=== PATIENT | male | born 1940 | race Caucasian/White ===

== ENCOUNTER 2018-10-17 12:02 | Inpatient (IN) ==
[2018-10-17] MEDS ORDERED: ASPIRIN PO ONE (12:12)
--- NOTE | 2018-10-17 12:20 | EKG Report ---
Test Performed on : 10/17/2018 12:07:55 PM Test Reason : chest pain Blood Pressure : / mmHG Vent. Rate : 051 BPM Atrial Rate : 051 BPM P-R Int : 172 ms QRS Dur : 126 ms QT Int : 518 ms P-R-T Axes : 063 011 033 degrees QTc Int : 477 ms Sinus bradycardia. Right bundle branch block Abnormal ECG When compared with ECG of 05-OCT-2018 16:35, No significant change was found Unconfirmed Result
--- NOTE | 2018-10-17 12:50 | Diag Imaging Result Doc PS360 ---
EXAM: CHEST-2 VIEWS 10/17/2018 HISTORY: chest pain TECHNIQUE: PA and lateral chest COMMENT: There is blunting of the left costophrenic angle which has not changed since 03/29/2017 and 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 Overall the appearance the chest has not changed significantly otherwise. IMPRESSION: Stable chest. Electronically signed by Akin Zarate 10/17/2018 12:48 PM
[2018-10-17 12:53] LABS: BASO# 0.02 X1000 (0.0-0.2); BASO% 0.5 % (0.0-0.8); EOS# 0.17 X1000 (0.0-0.7); HEMATOCRIT 36.5 % (42.0-52.0); HEMOGLOBIN 12.7 g/dL (14.0-18.0); IMM GRAN# 0.02 X1000 (0.0-0.04); IMM GRAN% 0.5 % (0.0-0.5); LYMPH# 1.46 X1000 (1.2-3.4); LYMPH% 34.5 % (20.5-51.1); MCH 35.4 PG (27-31); MCHC 34.8 g/dL (33-37); MCV 101.7 FL (81-99); MONO# 0.43 X1000 (0.11-0.59); MONO% 10.2 % (1.7-9.3); NEUT# 2.13 X1000 (1.4-6.5); NEUT% 50.3 % (42.2-75.2); PLT 174 X1000 (130-400); RBC 3.59 XMIL (4.7-6.1); RDW 13.3 % (11.5-14.5); WBC 4.23 X1000 (4.8-10.8)
[2018-10-17 12:57] LABS: INR 1.13; PROTIME 14.7 Seconds (11.0-16.0)
[2018-10-17 12:58] LABS: PTT 27.4 Seconds (22.3-41.8)
[2018-10-17 13:20] LABS: ALB/GLOB RATIO 1.8; ALBUMIN 4.1 g/dL (3.5-5.0); CALCIUM 9.8 mg/dL (8.8-10.2); CREATININE 1.8 mg/dL (0.7-1.2); POTASSIUM 4.7 mmol/L (3.5-5.1); TOTAL BILIRUBIN 0.51 mg/dL (0.20-1.00); TOTAL PROTEIN 6.4 g/dL (6.3-8.3)
[2018-10-17] MEDS ORDERED: TORADOL IV ONE (14:14)
--- NOTE | 2018-10-17 14:48 | PROVIDER DOCUMENTATION ---
This chart was entered by Daly Jacobs Scribe, acting as scribe for King Rios MD. HPI-Chest Pain - General Chief Complaint: Chest Pain Stated Complaint: CP Time Seen by Provider: 10/17/18 12:56 Source: patient Allergies/Adverse Reactions: Patient Allergies Allergy/AdvReac Type Severity Reaction Status Date / Time Penicillins Allergy ANAPHYLAXIS Verified 05/24/17 14:46 Home Medications: Home Medication List Medication Instructions Recorded Confirmed Last Taken Type Metformin E.r. [Glucophage Xr] 500 mg PO BID CC 04/01/17 10/05/18 10/08/18 11:11 History Lisinopril 20 mg PO DAILY 05/24/17 10/05/18 10/08/18 11:11 History Atenolol 50 mg PO DAILY 10/05/18 10/05/18 10/08/18 11:11 History - History of Present Illness-CP Nature of Presenting Problem: Patient is a 78 year old male who presents with left side chest pain. States nausea, weakness, and shortness of breath with chest pain. Reports symptoms have been present for 3 days. States being seen at PCP prior to arrival. Location: reports: other (left side) Chest Pain Radiation: reports: no radiation Quality of Pain: reports: aching Severity in ED: mild Onset/Duration: 3 days ago Timing: still present Context/Activities at Onset: reports: light activity Modifying Factors: worse with: coughing, other (sneezing) Associated Symptoms: reports: nausea, shortness of breath, weakness Similar Symptoms Previously?: Yes Recently Seen Here or By Another Healthcare Provider: Yes Review of Systems - Adult - REVIEW OF SYSTEMS - ADULT Constitutional: reports: no symptoms reported. denies: chills, fever, fatique Eyes: reports: no symptoms reported Ears, Nose, Mouth & Throat: reports: no symptoms reported Cardiovascular: reports: see HPI, chest pain. denies: irregular heart rate, palpitations Respiratory: reports: see HPI, shortness of breath. denies: cough, wheezing Gastrointestinal: reports: see HPI, nausea. denies: abdominal pain, diarrhea, vomiting Genitourinary: reports: no symptoms reported Musculoskeletal: reports: see HPI, muscle weakness. denies: back pain, muscle aches, neck pain Integumentary: reports: no symptoms reported Neurological: reports: no symptoms reported Psychiatric: reports: no symptoms reported Endocrine: reports: no symptoms reported Hematologic/Lymphatic: reports: no symptoms reported Allergic/Immunologic: reports: no symptoms reported All Other Systems: Reviewed and Negative Past History - Adult - PAST MEDICAL HISTORY-ADULT Review of Records: reports: Old Records Reviewed, Nursing Assessment Review, Medications Reviewed, Social history reviewed & non-contributory. Major Childhood Illnesses: reports: denies history Cardiovascular: reports: HTN, hyperlipidemia Respiratory: reports: denies history Gastrointestinal: reports: GERD Obstetrical/Gynecological: reports: denies history Genitourinary: reports: prostate cancer Musculoskeletal: reports: denies history Neurological: reports: denies history Psychiatric: reports: depression Endocrine/Immune: reports: Diabetes Other Conditions: reports: denies history - PRIOR SURGERIES/PROCEDURES Surgical/Procedure History: reports: orthopedic (extremity), other (prostate, arthroscopy, retinal detatchment repair) - IMMUNIZATION STATUS Childhood Immunizations: See Nurse Assessment Flu Vaccine: See Nurse Assessment - FAMILY HISTORY Family History: reviewed, not pertinent - SOCIAL HISTORY Smoking: cigarettes (former) Substance Use: denies Physical Exam-General - PHYSICAL EXAM-ADULT Initial Vital Signs Reviewed: Yes - CONSTITUTIONAL General Appearance: alert, no apparent distress. negative: lethargic - HEAD, EARS, NOSE, MOUTH & THROAT HENMT: normocephalic/atraumatic, moist mucous membranes. negative: angioedema - RESPIRATORY Respiratory: lungs clear, normal breath sounds, other (left anterior chest wall tenderness with palpation). negative: crackles, rhonchi - CARDIOVASCULAR Cardiovascular: normal peripheral pulses, bradycardia. negative: systolic murmur - GASTROINTESTINAL (ABDOMEN) Abdominal Exam: normal bowel sounds, non tender, soft. negative: guarding - MUSCULOSKELETAL Extremity: non-tender, normal inspection. negative: deformity, erythema - SKIN Integumentary: normal color, normal turgor, warm/dry. negative: diaphoresis, rash - NEUROLOGIC Neurologic: grossly normal. negative: aphasia, facial droop - PSYCHIATRIC Psych/Mental Status: normal mood/affect, oriented x 3. negative: anxious - HEART Score HEART Score: History: Moderately Suspicious HEART Score: ECG: Non-Specific Repolarization Disturbance/LBBB/PM HEART Score: Age: > or = 65 Years HEART Score: Risk Factors for Atherosclerotic Disease: 1 or 2 Risk Factors HEART Score: Troponin: < or = Normal Limit Total HEART Score:: 5 Progress - PLAN OF CARE/RESULTS Progress/Plan/Lab Results: Vital Signs - 8 hr 10/17/18 12:08 10/17/18 12:16 10/17/18 13:00 Temperature 97.8 F Pulse Rate 53 L 60 60 Respiratory Rate 18 15 13 Blood Pressure 98/60 108/57 102/86 O2 Sat by Pulse Oximetry 99 100 100 10/17/18 13:10 10/17/18 13:20 10/17/18 13:30 Temperature Pulse Rate 46 L 54 L 51 L Respiratory Rate 13 13 19 Blood Pressure O2 Sat by Pulse Oximetry 97 96 97 10/17/18 13:40 10/17/18 13:50 10/17/18 13:51 Temperature Pulse Rate 89 56 L 55 L Respiratory Rate 20 12 12 Blood Pressure 105/58 O2 Sat by Pulse Oximetry 100 95 98 10/17/18 14:00 10/17/18 14:02 10/17/18 14:10 Temperature Pulse Rate 51 L 55 L 56 L Respiratory Rate 18 12 12 Blood Pressure 106/54 O2 Sat by Pulse Oximetry 98 100 98 10/17/18 14:20 Temperature Pulse Rate 55 L Respiratory Rate 17 Blood Pressure O2 Sat by Pulse Oximetry 98 Laboratory Results - last 24 hr 10/17/18 10/17/18 10/17/18 12:32 12:32 12:32 WBC 4.23 L RBC 3.59 L Hgb 12.7 L Hct 36.5 L MCV 101.7 H MCH 35.4 H MCHC 34.8 RDW Std Deviation 13.3 Plt Count 174 MPV 10.0 Immature Gran % (Auto) 0.5 Neut % (Auto) 50.3 Lymph % (Auto) 34.5 Beadle % (Auto) 10.2 H Eos % (Auto) 4.0 Baso % (Auto) 0.5 Immature Gran # (Auto) 0.02 Neut # (Auto) 2.13 Lymph # (Auto) 1.46 Beadle # (Auto) 0.43 Eos # (Auto) 0.17 Baso # (Auto) 0.02 PT INR PTT (Actin FS) Sodium 140 Potassium 4.7 Chloride 105 Carbon Dioxide 19 L Anion Gap 16 BUN 23 H Creatinine 1.8 H Estimated GFR/1.73 m2 37 BUN/Creatinine Ratio 13 Glucose 99 Calculated Osmolality 283 Calcium 9.8 Total Bilirubin 0.51 AST 38 H ALT 22 Alkaline Phosphatase 85 Creatine Kinase 48 Troponin T Qfb-[id number]-[id number] Pept 913 H Total Protein 6.4 Albumin 4.1 Globulin 2.3 Albumin/Globulin Ratio 1.8 10/17/18 10/17/18 10/17/18 12:32 12:32 14:56 WBC RBC Hgb Hct MCV MCH MCHC RDW Std Deviation Plt Count MPV Immature Gran % (Auto) Neut % (Auto) Lymph % (Auto) Beadle % (Auto) Eos % (Auto) Baso % (Auto) Immature Gran # (Auto) Neut # (Auto) Lymph # (Auto) Beadle # (Auto) Eos # (Auto) Baso # (Auto) PT 14.7 INR 1.13 PTT (Actin FS) 27.4 Sodium Potassium Chloride Carbon Dioxide Anion Gap BUN Creatinine Estimated GFR/1.73 m2 BUN/Creatinine Ratio Glucose Calculated Osmolality Calcium Total Bilirubin AST ALT Alkaline Phosphatase Creatine Kinase Troponin T < 0.010 < 0.010 Evc-T-Nbwvknzuezh Pept Total Protein Albumin Globulin Albumin/Globulin Ratio Orders Category Date Time Status Cardiac Monitoring DIRECTED Care 10/17/18 12:13 Active Saline Loc NOW Care 10/17/18 12:13 Active CHEST-2 VIEWS [RAD] Stat Exams 10/17/18 12:13 Completed CBC WITH ELECTRONIC DIFF [HEME] Stat Lab 10/17/18 12:32 Completed CK PROFILE [SP CHEM] Stat Lab 10/17/18 12:32 Completed COMPREHENSIVE METABOLIC PANEL [CHEM] Stat Lab 10/17/18 12:32 Completed PRO B-NATRIURETIC PEPTIDE Stat Lab 10/17/18 12:32 Completed PROTIME WITH INR [COAG] Stat Lab 10/17/18 12:32 Completed PTT [COAG] Stat Lab 10/17/18 12:32 Completed TROPONIN T Stat Lab 10/17/18 12:32 Completed TROPONIN T Stat Lab 10/17/18 14:56 Completed Aspirin Med 10/17/18 12:12 Discontinued 325 mg PO NOW ONE Ketorolac [Toradol] Med 10/17/18 14:14 Discontinued 15 mg IV NOW ONE CP/SOB/Palp >45 yrs of Age Stat Oth 10/17/18 12:12 Ordered EKG [EKG] Stat Ther 10/17/18 12:13 Draft EKG [EKG] Stat Ther 10/17/18 14:47 Draft Result Diagrams: 10/17/18 12:32 10/17/18 12:32 - EKG 1 Time of EKG reading by physician:: 12:07 EKG Read and Signed by:: King Rios EKG Interpretation (*Must complete 3 of following elements*): Abnormal Rate: 51 Rhythm: sinus bradycardia Skipwith: normal QRS: RBB SD Interval: normal Comments: abnormal ECG 2 Time of EKG reading by physician:: 14:49 EKG Read and Signed by:: King Rios EKG Interpretation (*Must complete 3 of following elements*): Abnormal Rate: 55 Rhythm: sinus bradycardia Skipwith: normal QRS: RBB SD Interval: normal Comments: abnormal ECG - XRAY 1 XRAY Study: Chest Impression: See EMR Report ( EXAM: CHEST-2 VIEWS 10/17/2018 HISTORY: chest pain TECHNIQUE: PA and lateral chest COMMENT: There is blunting of the left costophrenic angle which has not changed since 03/29/2017 and 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 Overall the appearance the chest has not changed significantly otherwise. IMPRESSION: Stable chest. Electronically signed by Akin Zarate 10/17/2018 12:48 PM 10/17/18 1248 Interpreting Physician: Akin Zarate MD Dictated Date/Time: 10/17/18 1247 cc: King Rios MD; Maurilio Aguilera MD) - CONSULTS/PCP/HOSPITALIST Notification #1 *Consult/PCP/Hospitalist*: AZIZA Roman for Hospitalist Time Discussed: 16:58 Reason/Comments: Dr. Rios consulted with Jessie about patient Consult Disposition: Will see in ED, Admit Departure - Departure Date of Disposition Decision: 10/17/18 Time of Disposition Decision: 16:58 DIAGNOSIS: Chest pain, Bradycardia Disposition: ADMITTED INPATIENT 09 Certified Medical Emergency: Emergent Condition: Fair Referrals and Follow-Ups: Maurilio Aguilera MD [Primary Care Provider] - - Critical Care Note This patient required my direct & personal management of CC.: No Attestation - Physician/ DEIDRE Attestation Patient care was provided by Advanced Practice Provider:: No The physician spent face to face time with patient:: Yes Advanced Practice Provider documentation review:: Supervising physician onsite and consulted in the evaluation and care of this patient. The physician did have a face to face encounter with the patient. This chart was documented by the indicated scribe, (Daly Jacobs Scribe) and accurately reflects the services I performed and decisions made by me, King Rios MD, as attested by the provider's signature.
--- NOTE | 2018-10-17 14:59 | EKG Report ---
Test Performed on : 10/17/2018 2:49:35 PM Test Reason : 2 HR REPEAT Blood Pressure : / mmHG Vent. Rate : 055 BPM Atrial Rate : 055 BPM P-R Int : 166 ms QRS Dur : 128 ms QT Int : 516 ms P-R-T Axes : 021 004 039 degrees QTc Int : 493 ms Sinus bradycardia. Right bundle branch block Abnormal ECG When compared with ECG of 17-OCT-2018 12:07, (Unconfirmed) No significant change was found Unconfirmed Result
[2018-10-17] MEDS ORDERED: ZOFRAN IV PRN (18:00)
[2018-10-17] MEDS ORDERED: TYLENOL PO PRN (18:00)
--- NOTE | 2018-10-17 19:05 | HISTORY AND PHYSICAL ---
PRIMARY CARE PHYSICIAN: Dr. Maurilio Aguilera. CHIEF COMPLAINT: Three days of intermittent chest pain. HISTORY OF PRESENT ILLNESS: Mr. Kat is a 78-year-old male with a history of hypertension, diabetes mellitus type 2 and a recent staph infection involving the right elbow who presented to the ER today with a chief complaint of intermittent chest pain for the last 3 days. The patient reports that he has been getting this intermittent stabbing in the center of his chest that comes and goes for the last 3 days. He reports that he felt strange and reports that he does have some mild shortness of breath with the chest discomfort but denies any syncope, nausea, vomiting, or diaphoresis. The patient states that he had a MSSA infection involving his right elbow about a month ago and he has completed the antibiotic therapy for this infection. The patient reports that he has been feeling depressed. His about 1 year ago this week. The patient reports that he has no difficulty with ambulation and [facility] The patient does report that he does drink alcoholic beverage once in a blue cerda. In the ER the patient was noted to be bradycardic with a heart rate ranging from 51 to about 56. His blood pressure was noted to be 116/68. The patient received 325 mg of aspirin upon arrival and a dose of Toradol. At this time the patient states that his chest pain is a 0/10. PAST MEDICAL HISTORY: 1. Hypertension. 2. Diabetes mellitus type 2. 3. Recent MSSA right elbow infection. 4. Chronic kidney disease stage 3. PAST SURGICAL HISTORY: 1. Prostatectomy. 2. Right shoulder arthroscopic surgery. FAMILY HISTORY: Positive for stroke. ALLERGIES: Penicillin which causes hives. SOCIAL HISTORY: The patient states that he drinks alcohol occasionally. Denies any tobacco usage. He currently lives at his son's [facility]. REVIEW OF SYSTEMS: A 12-point review of systems has been performed. Please refer to the history of present illness for pertinent positives and negatives. PHYSICAL EXAMINATION: VITAL SIGNS: Temperature 97.8 degrees, blood pressure 116/60, heart rate 71, respirations 14, O2 saturation is 100% on room air. GENERAL: This is a chronically ill-appearing elderly male lying comfortably on the stretcher in no acute distress. HEENT: Head normocephalic, atraumatic. Conjunctiva clear, EOMI, PERRLA. NECK: Supple. No JVD. No lymphadenopathy. HEART: S1, S2 normal bradycardic. LUNGS: Equal air entry bilaterally. No wheezing, no rales. No rhonchi. ABDOMEN: Positive bowel sounds. Soft, nontender, nondistended. EXTREMITIES: No edema, no cyanosis, no calf tenderness. There is some erythema on the right elbow. NEURO: The patient is alert and oriented x4. No focal neurologic deficits noted. Cranial nerves 2 through 12 intact. LABS: White blood cell count 4.2, hemoglobin 12, hematocrit 36, platelets 174,000. D-dimer 1. Sodium 140, potassium 4.7, chloride 105, CO2 19, BUN 23, creatinine 1.8, glucose 99, AST 38, ALT 22, alkaline phosphatase 85. Troponin less than 0.01. ProBNP 918, albumin 4.1. Chest x-ray reveals a stable chest. EKG reveals sinus bradycardia at 55 beats per minute. ASSESSMENT AND PLAN: 1. Chest pain. Will admit the patient to the medical floor on telemetry and rule out ND with serial enzymes and EKGs. Will also schedule the patient for a nuclear stress test tomorrow. We will continue on aspirin. We will hold the beta angie given the patient's bradycardia. Also the D-dimer was elevated. We will check a V/Q scan since the patient's creatinine is too high to perform CTA of the chest. We will also check a lipid profile. 2. Diabetes mellitus type 2. We will order Accu-Cheks before meals and at bedtime. We will also start the patient on insulin sliding scale. 3. Hypertension. Controlled. 4. Chronic kidney disease stage 3. Stable. 5. Deep vein thrombosis prophylaxis. Will start the patient on heparin. cc: Krista Barraza MD
[2018-10-17] MEDS ORDERED: MORPHINE IV PRN (21:32)
[2018-10-17] MEDS ORDERED: NS 500 ML IV SCH (21:45)
[2018-10-17] MEDS: HEPARIN SUBQ SCH (21:52)
[2018-10-17] MEDS: HUMULIN R SUBQ SCH (23:56)
[2018-10-18] MEDS: HUMULIN R SUBQ SCH ×2 (06:08→10:33)
[2018-10-18 06:54] VITALS: BP 132/67
[2018-10-18 07:49] LABS: HEMATOCRIT 38.4 % (42.0-52.0); HEMOGLOBIN 13.2 g/dL (14.0-18.0); MCH 35.4 PG (27-31); MCHC 34.4 g/dL (33-37); MCV 102.9 FL (81-99); RBC 3.73 XMIL (4.7-6.1); RDW 13.4 % (11.5-14.5); WBC 4.98 X1000 (4.8-10.8)
[2018-10-18 08:11] LABS: POTASSIUM 4.6 mmol/L (3.5-5.1); SODIUM 142 mmol/L (136-145)
[2018-10-18 08:12] LABS: AGAP 13; BUN 24 mg/dL (8-22); CALCIUM 8.9 mg/dL (8.8-10.2); CHLORIDE 108 mmol/L (98-107); CHOLESTEROL 140 mg/dL (0-200); COSMO 286; CREATININE 1.6 mg/dL (0.7-1.2); ESTIMATED GFR 42; GLUCOSE 86 mg/dL (70-104); HDL 82 mg/dL (35-55); LDL 39 mg/dL; TCO2 21 mmol/L (25-35); TRIGLYCERIDES 95 mg/dL (39-160); VLDL 19 mg/dL
--- NOTE | 2018-10-18 08:26 | Diag Imaging Result Doc PS360 ---
EXAM: LUNG SCAN / VQ 10/17/2018 HISTORY: pleuritic chest pain/elevated D dimer TECHNIQUE: Ventilation/perfusion lung scan, 39.7 mCi of technetium 99m DTPA aerosol for the ventilation portion and 5.9 mCi of technetium 99m MAA intravenously for the perfusion portion of the study. COMMENT: There is no evidence of ventilation/perfusion mismatch. There are no apparent perfusion defects. IMPRESSION: Normal study. Electronically signed by Akin Zarate 10/18/2018 8:24 AM
--- NOTE | 2018-10-18 08:50 | EKG Report ---
Test Performed on : 10/18/2018 08:32:49 AM Test Reason : chest pain Blood Pressure : / mmHG Vent. Rate : 043 BPM Atrial Rate : 043 BPM P-R Int : 156 ms QRS Dur : 124 ms QT Int : 538 ms P-R-T Axes : 001 001 033 degrees QTc Int : 454 ms Marked sinus bradycardia. Right bundle branch block Abnormal ECG When compared with ECG of 17-OCT-2018 14:49, (Unconfirmed) No significant change was found Confirmed by Jourdan Richard MD ([id number]) on 10/22/2018 9:30:01 PM
[2018-10-18] MEDS ORDERED: ASPIRIN EC PO SCH (09:00)
[2018-10-18] MEDS: HEPARIN SUBQ SCH (10:29)
--- NOTE | 2018-10-18 13:42 | CARDIOLOGY CONSULTATION ---
DATE: 10/18/2018 CHIEF COMPLAINT ON PRESENTATION: Four to five days of chest pain. HISTORY OF PRESENT ILLNESS: Mr. Kat is a 78-year-old, white male with a history of diabetes and hypertension who presented for evaluation of chest discomfort that occurred on walking out of an orthopedic clinic. He has been receiving antibiotics and care for a right elbow methicillin- sensitive staphylococcus infection. He described the discomfort as a stabbing- like discomfort in a relatively point location in his mid chest. There was no real exertional component. At times, there was a component associated with a deep breath or a cough. Again, it was stabbing. He says it has largely been present for the last 4 to 5 days in a fairly constant nature. PAST MEDICAL HISTORY: Significant for: 1. Hypertension. 2. Type 2 diabetes. 3. Recent treatment with multiple rounds of antibiotics for a methicillin- sensitive staphylococcus infection of his right elbow. 4. Chronic kidney disease. SOCIAL HISTORY: Occasional alcohol. No tobacco. He currently lives with his son. FAMILY HISTORY: Significant for hypertension. REVIEW OF SYSTEMS: A 10 system review of systems is negative except for those things mentioned in the HPI. PHYSICAL EXAMINATION: Vital Signs: He is afebrile. His heart rates have been anywhere from the mid 40s to 50s, blood pressure 132/67. General: He is in no acute distress. HEENT: Oropharynx is moist. Normal dentition. Eye examination shows pink conjunctivae and white sclerae. Neck: Examination shows no obvious thyromegaly or thyroid tenderness. Cardiovascular: He sounds to be in a regular rate and rhythm. He has no obvious murmurs. He has no S3. He has no lower extremity edema. Chest: Examination sounds clear bilaterally. He has no increased work of breathing. Abdomen: Soft, nontender, nondistended. He has no obvious organomegaly. Skin Examination: Warm and dry throughout. He does have some mild erythema over a mildly swollen area of his right elbow. He has no obvious drainage from that wound. Neurological: He is moving all extremities well. No lateralizing deficits. Psychiatric: He is alert, oriented, and pleasant. PERTINENT DATA: His chest x-ray shows mild blunting of the costophrenic angle, unchanged from previous, suggesting some fibrosis. His V/Q scan was read out as a normal study. He had a set of EKGs. October 18 shows a sinus bradycardia at 43 beats per minute. No acute findings. EKG on October 17 at 1449 shows sinus bradycardia at a rate of 55 beats per minute. No signs of ischemia or infarct. EKG on October 17 at 1207 shows sinus rhythm, bradycardic rate. No acute ischemic changes or evidence for infarct. His lab data demonstrates a white count of 4.9, hematocrit 38, platelet count 155,000. His sodium is 142, potassium is 4.6, his BUN is 24, creatinine is 1.6. His cardiac enzymes have been negative times multiple sets. His HDL was 82, LDL was 39. ASSESSMENT: Mr. Kat is a 78-year-old gentleman with diabetes who presents with somewhat atypical chest discomfort. PLAN: At this point, it would be reasonable to allow him to be discharged home. He has stable EKGs and negative cardiac enzymes. We will arrange for an outpatient myocardial perfusion scan considering his history of high blood pressure and diabetes. The patient takes atenolol 50 mg daily at home. Considering his heart rates, I would consider transitioning that over to possibly amlodipine. cc: Paramjit Campbell MD [facility]
--- NOTE | 2018-10-22 10:22 | DISCHARGE SUMMARY ---
ADMISSION DATE: 10/17/2018 DISCHARGE DATE: 10/18/2018 FINAL DISCHARGE DIAGNOSES: 1. Chest pain. 2. Diabetes mellitus type 2. 3. Hypertension. 4. Chronic kidney disease stage 3. CONSULTATIONS: Cardiology consultation with Dr. Campbell. HOSPITAL COURSE: Mr. Kat is a 78-year-old male with a history of diabetes and hypertension, who presented to the ER with chest pain. The patient was admitted to the hospitalist service and serial troponins and EKGs were obtained. The patient was noted to have elevated D-dimer, so a V/Q scan was done that was noted to be low probability for pulmonary embolism. The patient was seen by the legal adviser and it was recommended that the patient undergo a stress test as outpatient since he had already been exposed to the contrast for the V/Q scan. The patient had no further chest pain and was cleared for discharge home. DISCHARGE MEDICATIONS: 1. Aspirin 81 mg p.o. daily. 2. Metformin 500 mg oral twice a day. 3. Lisinopril 20 mg p.o. daily. 4. Atenolol 50 mg p.o. daily. DISCHARGE DIET: An 1800, ADA diet. FOLLOWUP INSTRUCTIONS: The patient will follow up with Dr. Campbell for an outpatient stress test as scheduled by his clinic. cc: Krista Barraza MD
== END 2018-10-18 14:42 | disposition home or self-care (01) | DRG 313 ==
LOC: ED 12:02 → EDIPHOLD 18:36 → 3N 20:42
PROVIDERS: ATTEND Internal Medicine